=== PATIENT | male | born 1990 | race African-American/Black ===

== ENCOUNTER 2022-06-22 20:11 | Emergency (ER) | payer SELFPAY ==
[~2022-06-22] VITALS: Ht 182.9 cm; Wt 86.0 kg
[2022-06-22] MEDS ORDERED: ACETAMINOPHEN 325MG TABLET PO ONE (21:00)
[2022-06-22] MEDS ORDERED: IBUP-2028 MT (23:15)
[2022-06-22] MEDS ORDERED: TOPUD PO (23:15)
[2022-06-22 23:30] VITALS: BP 100/85
== END 2022-06-22 23:30 | disposition home or self-care (01) ==
LOC: ER 20:11
DX: S82.491A Other fracture of shaft of right fibula, initial encounter for closed fracture (principal); W18.39XA Other fall on same level, initial encounter; Y93.89 Activity, other specified; Y92.89 Other specified places as the place of occurrence of the external cause; Y99.8 Other external cause status
CPT/HCPCS: 29515; 73080; 73590; 73610; 99284